=== PATIENT | female | born 1985 | race Caucasian/White ===

== ENCOUNTER 2020-07-16 17:03 | Outpatient (REF) | payer OTHER, SELFPAY | END 2020-07-16 17:04 | disposition home or self-care (01) | LOC: HO.LAB 17:03 | PROVIDERS: Visit Provider Internal Medicine | DX: Z20.828 Contact with and (suspected) exposure to other viral communicable diseases (principal) | CPT/HCPCS: C9803; U0003 ==

== ENCOUNTER 2023-12-22 17:01 | Emergency (ER) | payer OTHER, SELFPAY ==
--- NOTE | ~2023-12-22 | XR_ITS ---
EXAMINATION: XR LUMBOSACRAL SPINE CLINICAL INFORMATION: Lower back pain. Hip pain. COMPARISON: Lumbar spine radiographs dated 09/13/2015. TECHNIQUE: Three views of the lumbosacral spine. FINDINGS: Lumbar spinal alignment is anatomic in the sagittal projection. Vertebral body heights are maintained. Intervertebral disc space heights are well preserved. There is mild facet arthropathy at L4-L5 and L5-S1. No acute fracture. Sacroiliac joints are maintained. XR/XR lumbar spine 2-3V IMPRESSION: No acute osseous abnormality.
--- NOTE | ~2023-12-22 | XR_ITS ---
EXAMINATION: XR HIP, RIGHT CLINICAL INFORMATION: Right lateral hip pain. COMPARISON: None available. TECHNIQUE: Two views of the right hip. FINDINGS: No fracture. Alignment is anatomic. Hip joint space is maintained. Soft tissues are unremarkable. XR/XR hip RT w PEL1V IMPRESSION: Normal right hip.
--- NOTE | 2023-12-22 18:01 | ED.GENADULT ---
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 no travel, trauma no injection of IVDA, no fevers. taking tylenol and motrin without relief. Notes working has made it worse. No b/b incontinence no saddle anesthesia MD complaint: R leg pain Onset (ago): day(s) (yesterday) Location: right and lower extremity Radiation: distal Severity: severe Quality: other (throbbing) Pain Consistency: constant Relieving factors: rest Exacerbating factors: movement Associated symptoms: denies other symptoms Treatments prior to arrival: NSAID Related Data Previous Rx's ?Medication ?Instructions ?Recorded diazepam 5 mg tablet (Valium) 5 mg PO TID PRN muscle spasm #10 12/22/23 tabs Allergies Allergy/AdvReac Type Severity Reaction Status Date / Time azithromycin Allergy Unknown HIVES Verified 12/22/23 18:03 [From ZITHROMAX Z-BETTINA] levofloxacin [From LEVAQUIN] Allergy Unknown HIVES Verified 12/22/23 18:03 Penicillins [PENICILLINS] Allergy Unknown HIVES Verified 12/22/23 18:03 promethazine [From PHENERGAN] Allergy Unknown HIVES Verified 12/22/23 18:03 Review of Systems Review of Systems: Constitutional : No Fever, No Chills ENT/Mouth : No Ear Pain, No Hoarseness, No sore throat Eyes: No Eye Pain, No Swelling, No Redness, No Foreign Body Cardiovascular : No Chest Pain, No SOB Respiratory : No Cough, No Dyspnea Gastrointestinal : No Nausea, No Vomiting, No Diarrhea, No abdominal Pain Genitourinary : No Dysuria, No Hematuria Musculoskeletal : positive joint pain, No Myalgias, No Joint Swelling Skin : No Skin lacerations, No rash Neuro : No Weakness, No Numbness All other systems reviewed and are negative [facility] Past Medical History Attestation statement: The following information was validated with the patient. Source: old records reviewed Medical History (Updated 12/22/23 @ 20:08 by Amanda Archer DO) No pertinent past medical history Social History Social History (Updated 12/22/23 @ 20:08 by Amanda Archer DO) Patient Tobacco Use Status: Tobacco use Unknown Physical Exam ED Vital Signs: Vital Signs - 24 hr 12/22/23 18:02 Temperature 97.9 F Pulse Rate 93 Respiratory Rate 18 Blood Pressure 153/95 H Pulse Oximetry 98 Oxygen Delivery Method Room Air BMI result Body Mass Index 34.8 Appearance: Alert. Oriented X3. No acute distress. Eyes: Pupils equal, round and reactive to light. ENT: Pharynx normal. Neck: Normal inspection. Neck supple. CVS: Normal heart rate and rhythm. Pulses normal. Respiratory: No respiratory distress. Breath sounds normal. Abdomen: Soft and nontender. Skin: Skin warm and dry. Normal skin color. Normal skin turgor. Extremities: No lower extremity edema. no calf ttp. R leg 2+ DP and PT pulse, sensation intact, compartments are soft and compressible. pain to palpation anterior upper quadricep around hip tendon insertion no erythema no mass, no joint effusion no hernia. , no crepitus Neuro: Oriented X 3. No motor deficit. No sensory deficit. Course Course Course Narrative: This is a rapid medical exam: Additional HPI, ROS, PE not included below will be deferred to primary provider. Patient is a 38-year-old female presenting to the emergency department with complaint of severe right lateral hip pain since yesterday. States felt more like back pain yesterday, today moved to hip and pain is radiating down leg, toes tingling. Describes as pinched nerve. Denies saddle anesthesia, bowel/bladder incontinence. Denies fevers, hx of IVDU, cancer. Has been alternating ibuprofen/Tylenol without relief. Crying in triage. Plan: UA/Upreg, xrays Medications Administered Discontinued Medications Generic Name Dose Route Start Last Admin Trade Name Freq PRN Reason Stop Dose Admin Acetaminophen 975 mg 12/22/23 19:02 12/22/23 19:25 Acetaminophen 325 Mg Tablet PO 12/22/23 19:03 Not Given ONCE ONE Medical Decision Making Medical Decision Making MDM Narrative: 38 yo female with no sig PMH here with c/o upper quadriceps pain without known trauma distal NV intact compartments soft and compressible no rash no warmth no signs of joint infection or skin infection it is isolated to upper quadriceps. No hernia noted. at this time xrays ordered, IM dexamethasone and PO valium ordered- declined oral prednisone. The patient is NV intact no b/b incontience no saddle anesthesia. Seems MSK in nature. Differential Diagnosis Differential Diagnoses: The differential diagnosis associated with the presentation includes spasm, sprain, strain, tendonitis Lab Data MDM Lab Attestation statement: I reviewed the patient's lab results. Labs: Lab Results 12/22/23 Range/Units 18:16 Urine Color Yellow Urine Appearance Cloudy Urine pH 6.5 (5.0-9.0) Ur Specific Taylor 1.025 (1.005-1.025) Urine Protein Negative (Neg-Trace) mg/dL Urine Glucose (UA) Negative (Negative) mg/dL Urine Ketones Negative (Negative) mg/dL Urine Blood Negative (Negative) Urine Nitrite Negative (Negative) Ur Leukocyte Esterase Moderate (2+) H (Negative) Urine RBC 0-2 (0-2) /HPF Urine WBC 0-5 (0-5) /HPF Ur Squamous Epith Cells >20 (0-2) /HPF Urine Bacteria 4+ (None Seen) Hyaline Casts 0-2 (0-2) /LPF Urine Test NEGATIVE (NEGATIVE) Independent Interpretation I performed an independent interpretation of an: Plain X-Ray (no fracture) Radiology Impression Discussion of test interpretation with radiology: I have reviewed the radiologist's reading. Prescription Management I considered prescription management with: Pain Medication and Other Discharge Plan Discharge Clinical Impression: Acute leg pain Patient Disposition: Home, Self-Care Instructions: Leg Cramps (ED), Leg Pain (ED) Additional Instructions: return for worsening symptoms - loss of control of bowel or bladder numbness in genital area or any other concerns you can follow up in our orthopedics clinic if this continues and you cannot see your doctor - you will need to call and schedule appointment continue to rotate tylenol and motrin given IM dexamethasone this should last a few days use heat or ice hip xray and lumbar spine xray does not show any acute pathology Prescriptions: New diazepam [Valium] 5 mg tablet 5 mg PO TID PRN (Reason: muscle spasm) Qty: 10 0RF Rx Instructions: partial fill is okay Stand Alone Forms: Work/School Release Print Language: Martiniquais
[2023-12-22 18:02] VITALS: BP 153/95; PULSE 93; RESP 18; TEMP 36.6; O2SAT 98; BMI 34.8
[2023-12-22 18:22] LABS: Appearance Urine Cloudy; Color Urine Yellow; Glucose Urine UA Negative (Negative); Leukocyte Esterase Urine Moderate (2+) (Negative); Nitrite Urine Negative (Negative); PH 6.5 (5.0-9.0); Specific Gravity - Urine 1.025 (1.005-1.025); UMIC TRIGGER UACC YES; Urine Blood Negative (Negative); Urine Ketones Negative (Negative); Urine Protein Negative (Neg-Trace)
[2023-12-22 18:23] LABS: UPreg QC Valid YES; Urine Pregnancy NEGATIVE (NEGATIVE)
[2023-12-22 18:30] LABS: Bacteria Urine 4+ (None Seen); Hyaline Casts Urine 0-2 /LPF (0-2); RBC Urine 0-2 /HPF (0-2); Squamous Epithelial Cell Urine >20 /HPF (0-2); WBC Urine 0-5 /HPF (0-5)
[2023-12-22] MEDS: diazePAM 5 MG TABLET PO (20:04)
[2023-12-22] MEDS: dexAMETHasone sod phosphate 4 MG/ML VIAL 8 MG IM (20:05)
[2023-12-22 20:09] VITALS: BP 153/95; PULSE 64; RESP 20; TEMP 37; O2SAT 99
== END 2023-12-22 20:10 | disposition home or self-care (01) ==
PROVIDERS: Registered Nurse Emergency; Emergency Provider Emergency Medicine
DX: M25.551 Pain in right hip (principal); M54.50 Low back pain, unspecified; Z79.899 Other long term (current) drug therapy
CPT/HCPCS: 72100; 73502; 81001; 81025; 96372; 99284; J1100